=== PATIENT | female | born 1985 | race African-American/Black ===

== ENCOUNTER 2017-09-21 23:58 | Emergency (ER) | payer OTHER, MEDICAID ==
[~2017-09-21] VITALS: Ht 149.9 cm; Wt 54.4 kg
[2017-09-22 00:20] VITALS: BP 122/78
[2017-09-22] MEDS ORDERED: HYDROCODON-ACE1 EA15 ORAL (00:25)
[2017-09-22] MEDS ORDERED: AUGMENTIN 875-1 EAC1 ORAL (00:25)
[2017-09-22] MEDS ORDERED: IBUPROFEN600 MG ORAL (00:25)
--- NOTE | 2017-09-22 00:25 | Emergency Room Report ---
History of Present Illness General Chief Complaint: Sore Throat Source: Patient Present Illness HPI A 31-year-old female with no past medical history. She presents with chief complaint is sore throat. Onset for 2 days. Pain is 9/10. Worse with eating and swallowing. Has subjective fever and chills. No cough or congestion. No runny nose. No abdominal pain. Allergies: Coded Allergies: No Known Allergies (Unverified , 09/22/17) Patient History Past Medical History: see triage record, old chart reviewed Past Surgical History: none Pertinent Family History: none Social History: Denies: smoking Last Menstrual Period: aug 30 Now: No : 5 Para: 3 Immunizations: other Reviewed Nursing Documentation: PMH: Agreed, PSxH: Agreed Nursing Documentation-PMH Past Medical History: No Stated History Review of Systems Constitutional: Reports: chills, fever Eye: Denies: eye pain, blurred vision ENT: Reports: throat pain, throat swelling, Denies: ear pain, nose congestion Respiratory: Denies: cough, shortness of breath Cardiovascular: Denies: chest pain, palpitations Gastrointestinal: Denies: abdominal pain, diarrhea, nausea, vomiting Musculoskeletal: Denies: back pain, joint pain Skin: Denies: rash Neurological: Denies: headache, numbness Endocrine: Denies: increased thirst, increased urine Hematologic/Lymphatic: Denies: easy bruising All Other Systems: negative except mentioned in HPI Physical Exam Vital Signs Date Time Temp Pulse Resp B/P (MAP) Pulse Ox O2 Delivery O2 Flow Rate FiO2 09/22/17 00:03 99.3 103 18 122/78 97 Room Air 99.3 vitals with low grade fever Sp02 EP Interpretation: reviewed, normal General Appearance: well appearing, no apparent distress, alert Head: normocephalic, atraumatic Eyes: bilateral eye PERRL, bilateral eye EOMI ENT: hearing grossly normal, tonsillar swelling, pharyngeal erythema, tonsillar exudate Neck: full range of motion, supple, no meningismus, tender - Adenopathy Respiratory: chest non-tender, lungs clear, normal breath sounds Cardiovascular #1: regular rate, rhythm, no murmur Gastrointestinal: normal bowel sounds, non tender, no mass, no organomegaly, no bruit, non-distended Musculoskeletal: back normal, gait/station normal, normal range of motion Psychiatric: mood/affect normal Skin: warm/dry Medical Decision Making Diagnostic Impression: Primary Impression: Acute tonsillitis Qualified Codes: J03.90 - Acute tonsillitis, unspecified ER Course Patient with acute tonsillitis. Most likely strep. No evidence of peritonsillar abscess, retropharyngeal abscess or Jordan angina. We'll discharge home. Last Vital Signs Date Time Temp Pulse Resp B/P (MAP) Pulse Ox O2 Delivery O2 Flow Rate FiO2 09/22/17 00:03 99.3 103 18 122/78 97 Room Air 99.3 Status: improved Disposition: HOME, SELF-CARE Condition: Stable Scripts Ibuprofen* (MOTRIN*) 600 Mg Tablet 600 MG ORAL Q8H Y for For Pain, #30 TAB 0 Refills Prov: MAY CARROLL M.D. 09/22/17 Hydrocodone/Acetaminophen 5-325* (HYDROCODONE/ACETAMINOPHEN 5-325*) 1 Each Tablet 1 TAB ORAL Q6H Y for For Pain, #10 TAB 0 Refills Prov: MAY CARROLL M.D. 09/22/17 Amoxicillin/Potassium Clav 875-125* (AUGMENTIN 875-125 TABLET*) 1 Each Tablet 1 TAB ORAL TWICE A DAY, #14 TAB Prov: MAY CARROLL M.D. 09/22/17 Patient Instructions: Tonsillitis Additional Instructions: Increase fluid. Saltwater gargle. Followup your doctor in 7 days. Return if worse. MAY CARROLL M.D. Sep 22, 2017 00:25
[2017-09-22 00:57] VITALS: BP 120/77
== END 2017-09-22 | disposition home or self-care (01) ==
LOC: EMR 09-22 00:15
DX: J03.90 Acute tonsillitis, unspecified (principal)
CPT/HCPCS: 99284; J7512